=== PATIENT | female | born 1960 | race Caucasian/White ===

== ENCOUNTER 2018-08-23 07:10 | Emergency (ER) | payer BC ==
[2018-08-23 07:32] VITALS: BP 130/81; PULSE 74; TEMP 98.8; BMI 31.8
[2018-08-23] MEDS ORDERED: KETOROLAC TROMETHAMINE 30 MG/1 ML VIAL IM ONE (08:19)
[2018-08-23] MEDS ORDERED: KETOROLAC TROMETHAMINE 30 MG/1 ML VIAL ONE (08:25)
--- NOTE | 2018-08-23 08:25 | PDOC ---
History of Present Illness - General Chief Complaint: Injury Stated Complaint: FALL Time Seen by Provider: 08/23/18 08:03 History Source: Patient Exam Limitations: No Limitations - History of Present Illness Initial Comments: 08/23/18 08:20 CHIEF COMPLAINT: Hip pain HISTORY OF PRESENT ILLNESS: This is an otherwise healthy 58-year-old female (on ASA 81 mg daily only) who presents for evaluation of left hip and back pain. Patient reports slipping in the shower and following onto her backside on Monday. She did not strike her head. She was able to stand up and has since been ambulatory, however she notes worsening pain when flexing the left hip/ lifting the left leg. She has been taking 2-3 Advil at a time without relief of symptoms. She is able to bear full weight on the left leg. Vital signs on arrival are unremarkable. REVIEW OF SYSTEMS: GENERAL/CONSTITUTIONAL: No fever or chills. No weakness. No weight change. MUSCULOSKELETAL: See HPI. SKIN: No rash or easy bruising. NEUROLOGIC: No headache, vertigo, loss of consciousness, or loss of sensation. HEMATOLOGIC/LYMPHATIC: No anemia, easy bleeding, or history of blood clots. ALLERGIC/IMMUNOLOGIC: No hives or skin allergy. No latex allergy. History of iodine ALLERGY. PHYSICAL EXAM: GENERAL: The patient is awake, alert, and fully oriented, in no acute distress. HEAD: Normal with no signs of trauma. ENT: Pupils equal, round and reactive to light, extraocular movements intact, sclera anicteric, conjunctiva clear. Neck supple. No cervical vertebral tenderness. LUNGS: Clear to auscultation bilaterally. Normal excursion. No respiratory distress or use of accessory muscles. Ecchymosis left mid-back. CV: RRR, S1/S2, no MRG. Cap refill < 2 sec. ABDOMEN: Soft, non-distended, non-tender. EXTREMITIES: Ecchymosis right buttock. Left hip flexion limited by pain. No pain on palpation of hips, pelvis, femurs. NEUROLOGICAL: Normal speech, normal gait with full weight-bearing. CN II-XII grossly intact. No vertebral tenderness. PSYCH: Normal mood, normal affect. SKIN: Warm, dry, normal turgor, no rashes or lesions noted. Past History - Past Medical History Allergies/Adverse Reactions: Allergies Allergy/AdvReac Type Severity Reaction Status Date / Time iodine Allergy Verified 08/23/18 07:27 Home Medications: Ambulatory Orders Aspirin [ASA -] 81 mg PO DAILY 08/23/18 Calcium Carbonate [Calcium] 500 mg PO DAILY 08/23/18 Cholecalciferol (Vitamin D3) [Vitamin D3] 2,000 unit PO DAILY 08/23/18 Tramadol HCl/Acetaminophen [Tramadol-Acetaminophn 37.5-325] 1 each PO Q6H PRN # 30 tablet MDD 4 08/23/18 COPD: No Hypercholesterolemia: Yes - Immunization History Immunization Up to Date: Yes - Suicide/Smoking/Psychosocial Hx Smoking Status: No Smoking History: Never smoked Number of Cigarettes Smoked Daily: 0 Information on smoking cessation initiated: No Hx Alcohol Use: No Drug/Substance Use Hx: No Substance Use Type: None *Physical Exam - Vital Signs Last Vital Signs Temp Pulse Resp BP Pulse Ox 98.8 F 74 16 130/81 97 08/23/18 07:27 08/23/18 07:27 08/23/18 07:27 08/23/18 07:27 08/23/18 07:27 ED Treatment Course - RADIOLOGY Radiology Studies Ordered: Category Date Time Status CHEST PA & LAT [RAD] Stat Radiology 08/23/18 08:19 Ordered HIP & PELVIS-LEFT [RAD] Stat Radiology 08/23/18 08:19 Ordered Medical Decision Making - Medical Decision Making 08/23/18 08:25 A/P: 58-year-old female with multiple ecchymosis and pain four days s/p mechanical fall in shower. 1. Toradol 30mg IM for pain 2. X-ray left hip/pelvis (limited ROM) 3. X-ray chest r/o rib fx/PTX (mid-back ecchymosis) 4. Re-assess 08/23/18 11:05 Xray reviewed: suspect avulsion fx at left anterior superior iliac spine. Hip joint unremarkable, no rib fx noted. Patient advised official reads are pending. Will dc with pain control, ortho followup. Patient advised to return for CT if symptoms worsening. 08/23/18 12:55 Radiology report reviewed: reactive sclerosis on left without signs of fracture. Patient notified by phone. *DC/Admit/Observation/Transfer Diagnosis at time of Disposition: Pelvic avulsion fracture Qualifiers: Encounter type: initial encounter Pelvic bone location: ilium Fracture type: closed Fracture alignment: nondisplaced Laterality: left Qualified Code(s): S32.315A - Nondisplaced avulsion fracture of left ilium, initial encounter for closed fracture - Discharge Dispostion Disposition: HOME Condition at time of disposition: Stable Decision to Admit order: No - Prescriptions Prescriptions: Tramadol HCl/Acetaminophen [Tramadol-Acetaminophn 37.5-325] 1 each PO Q6H PRN # 30 tablet MDD 4 PRN Reason: Pain - Referrals Referrals: Juanita Forde MD [Primary Care Provider] - Hank Cadet MD [Staff Physician] - 1 week (Orthopedics) - Patient Instructions Printed Discharge Instructions: DI for Pelvic Fracture Additional Instructions: -You may have a pelvic fracture on the left side; official x-ray radiology report is pending. You may call me to follow up later today at [phone]. -Continue ibuprofen with food and add Tramadol as needed for severe pain ( prescription sent to your pharmacy). -Follow up with the orthopedist in one week (referral enclosed). -Return here for worsening pain, as you may need a CT scan to investigate further. - Post Discharge Activity Forms/Work/School Notes: Back to Work
== END 2018-08-23 11:14 | disposition home or self-care (01) ==
LOC: JER 07:10
PROC: 3E0233Z Introduction of Anti-inflammatory into Muscle, Percutaneous Approach (ICD-10-PCS; principal; 2018-08-23)
DX: S32.315A Nondisplaced avulsion fracture of left ilium, initial encounter for closed fracture (principal); W18.2XXA Fall in (into) shower or empty bathtub, initial encounter; Y93.E1 Activity, personal bathing and showering; Y92.031 Bathroom in apartment as the place of occurrence of the external cause; Y99.8 Other external cause status
CPT/HCPCS: 71046-TC-FY; 73523-TC-FY; 99282-25

== ENCOUNTER 2022-07-21 04:39 | Day surgery (SDC) | payer OTHER ==
[2022-07-18 12:02] VITALS: BMI 32.2
[2022-07-21 10:13] VITALS: TEMP 97
[2022-07-21 10:21] VITALS: RESP 14
[2022-07-21 10:59] VITALS: BP 115/72; PULSE 83
== END 2022-07-21 10:55 | disposition home or self-care (01) ==
LOC: JASU-ENDO 04:39
PROVIDERS: ATTEND Internal Medicine Gastroenterology
PROC: 0DJD8ZZ Inspection of Lower Intestinal Tract, Via Natural or Artificial Opening Endoscopic (ICD-10-PCS; principal; 2022-07-21 11:00)
DX: Z12.11 Encounter for screening for malignant neoplasm of colon (principal); Z86.010 Personal history of colon polyps

== ENCOUNTER 2023-11-04 20:10 | Emergency (ER) | payer OTHER ==
[2023-11-04 20:18] VITALS: BMI 27.4
[2023-11-04 20:50] LABS: BASO % 0.2 % (0-2.0); HEMATOCRIT 41.1 % (32.4-45.2); HEMOGLOBIN 13.8 GM/dL (10.7-15.3); LYMPH % 11.1 % (8-40); MCH 30.2 pg (25.7-33.7); MCHC 33.6 g/dl (32.0-36.0); MEAN CELL VOLUME 89.8 fl (80-96); MONO % 6.4 % (3.8-10.2); NEUT % 82.3 % (42.8-82.8); PLATELET COUNT 243 10^3/uL (134-434); RBC 4.58 M/mm3 (3.60-5.2); RDW 13.9 % (11.6-15.6)
[2023-11-04] MEDS ORDERED: SODIUM CHLORIDE 1,000 ML IV STA (20:56)
[2023-11-04] MEDS ORDERED: KETOROLAC TROMETHAMINE 15 MG/ML VIAL IVPUSH ONE (20:56)
[2023-11-04] MEDS ORDERED: FAMOTIDINE 20 MG/50 ML IVPB 20 MG/50 ML MG IVPB ONE ×2 (20:56→20:59)
[2023-11-04] MEDS ORDERED: ONDANSETRON 4 MG/2 ML VIAL IVPUSH ONE (20:56)
[2023-11-04] MEDS ORDERED: KETOROLAC TROMETHAMINE 15 MG/ML VIAL ONE (20:59)
[2023-11-04] MEDS ORDERED: ONDANSETRON 4 MG/2 ML VIAL ONE (20:59)
[2023-11-04 21:08] LABS: POTASSIUM 3.8 mmol/L (3.5-5.1)
[2023-11-04 21:10] LABS: CALCIUM 8.8 mg/dL (8.5-10.1)
[2023-11-04 21:11] LABS: ALBUMIN 3.8 g/dl (3.4-5.0)
[2023-11-04 21:14] LABS: CREATININE 0.7 mg/dL (0.55-1.3)
[2023-11-04 21:15] LABS: BILIRUBIN,TOTAL 0.5 mg/dL (0.2-1)
[2023-11-04 21:16] LABS: TOT PROT 7.5 g/dl (6.4-8.2)
[2023-11-04 22:37] LABS: URINE APPEARANCE CLEAR; URINE BILIRUBIN NEGATIVE (NEGATIVE); URINE COLOR YELLOW; URINE GLUCOSE (UA) NEGATIVE (NEGATIVE); URINE KETONE 1+ (NEGATIVE); URINE LEUK ESTERASE NEGATIVE (NEGATIVE); URINE NITRITE NEGATIVE (NEGATIVE); URINE PROTEIN NEGATIVE (NEGATIVE); URINE UROBILINOGEN 0.2 mg/dL (0.2-1.0)
[2023-11-04 23:07] VITALS: BP 112/64; PULSE 82; RESP 16; TEMP 98.8
== END 2023-11-04 23:10 | disposition home or self-care (01) ==
LOC: JER 20:10
PROC: 3E033GC Introduction of Other Therapeutic Substance into Peripheral Vein, Percutaneous Approach (ICD-10-PCS; principal; 2023-11-04)
PROC: 3E0333Z Introduction of Anti-inflammatory into Peripheral Vein, Percutaneous Approach (ICD-10-PCS; 2023-11-04)
PROC: 3E033GC Introduction of Other Therapeutic Substance into Peripheral Vein, Percutaneous Approach (ICD-10-PCS; 2023-11-04)
DX: R50.9 Fever, unspecified (principal); B34.9 Viral infection, unspecified; R53.83 Other fatigue; R09.81 Nasal congestion; R51.9 Headache, unspecified; R11.2 Nausea with vomiting, unspecified; R19.7 Diarrhea, unspecified; M79.10 Myalgia, unspecified site; R53.1 Weakness; M54.50 Low back pain, unspecified; Z20.822 Contact with and (suspected) exposure to COVID-19
CPT/HCPCS: 0241U-QW; 36415; 80053; 81003; 83690; 84484; 85025; 93005; 93010; 99284-25